=== PATIENT | female | born 1960 | race Caucasian/White ===

== ENCOUNTER 2021-03-22 13:36 | Emergency (ER) | payer OTHER, MEDICARE ==
[~2021-03-22] VITALS: Ht 170 cm; Wt 146.9 kg
[~2021-03-22 13:36] MED LIST: INSU100C4 SQ; LEVO300T31 PO; MECL-124 PO; SCOP1PAT TD
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
[2021-03-22] MEDS ORDERED: HYDROcodone/APAP 5 MG/325 MG (LORTAB) TAB PO ONE (15:15)
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
--- NOTE | 2021-03-22 16:04 | Diagnostic Imaging Report ---
INDICATION: Leg pain. FINDINGS: Two views of the left femur show no fracture or dislocation. There are arthritic changes to the knee greater than hip. There are surgical clips in the left hemipelvis. No suspicious opaque foreign body. IMPRESSION: No acute or post traumatic sequelae identified. Dictated by: Dictated on workstation # [id number]
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
[2021-03-22 17:15] VITALS: BP 145/70
== END 2021-03-22 17:16 | disposition home or self-care (01) ==
LOC: EDUNIT# 13:36 → ER 13:39
DX: S80.02XA Contusion of left knee, initial encounter (principal); S90.02XA Contusion of left ankle, initial encounter; E11.9 Type 2 diabetes mellitus without complications; E03.9 Hypothyroidism, unspecified; Z79.4 Long term (current) use of insulin; Z79.890 Hormone replacement therapy; Z79.899 Other long term (current) drug therapy; V89.2XXA Person injured in unspecified motor-vehicle accident, traffic, initial encounter
CPT/HCPCS: 73552; 73562; 73610

== ENCOUNTER → 2021-12-02 | Outpatient (CLI) | payer MEDICARE | LOC: WOUNDCARE 12:00 | PROVIDERS: ATTEND Family Medicine | DX: T81.31XA Disruption of external operation (surgical) wound, not elsewhere classified, initial encounter (principal); L76.34 Postprocedural seroma of skin and subcutaneous tissue following other procedure; C50.912 Malignant neoplasm of unspecified site of left female breast; E11.65 Type 2 diabetes mellitus with hyperglycemia; Z68.43 Body mass index [BMI] 50.0-59.9, adult | CPT/HCPCS: 87070; 87077; 87205; G0463; 87186; 99213 ==

== ENCOUNTER → 2022-02-15 | Outpatient (CLI) | payer MEDICARE ==
--- NOTE | 2022-02-15 15:23 | Diagnostic Imaging Report ---
INDICATION: Breast cancer. TECHNIQUE: Patient was administered 26.8 mCi technetium 99m MDP intravenously, and whole body imaging was performed after a three-hour delay. No prior bone scans are available for comparison. FINDINGS: There is normal uptake of activity by the axial and appendicular skeleton. There is uptake by the kidneys with excretion into the urinary bladder. There is uptake in the bilateral knees, which is likely degenerative. There is also some uptake in the lower cervical spine, which may be degenerative. No suspicious foci are identified to suggest osseous metastatic disease. IMPRESSION: No scintigraphic evidence of osseous metastatic disease. Dictated by: Dictated on workstation # [id number]
== END ==
LOC: CARD 11:00
PROVIDERS: ATTEND Internal Medicine Hematology & Oncology
DX: C50.212 Malignant neoplasm of upper-inner quadrant of left female breast (principal); Z17.0 Estrogen receptor positive status [ER+]
CPT/HCPCS: 78306; A9503